=== PATIENT | female | born 1940 | race Caucasian/White ===

== ENCOUNTER 2021-01-12 17:59 | Inpatient (IN) | payer MEDICARE, OTHER ==
[~2021-01-12] VITALS: Ht 152.4 cm; Wt 45.4 kg
[2021-01-12 20:22] LABS: BASOPHILS ABSOLUTE AUTO 0.11 K/mm3 (0.00-0.23); BASOPHILS PERCENT AUTO 1 % (0-2); EOSINOPHILS ABSOLUTE AUTO 0.13 K/mm3 (0.00-0.68); EOSINOPHILS PERCENT AUTO 1 % (0-6); Hemoglobin 12.3 g/dL (11.5-16.0); IMMATURE GRAN ABSOLUTE AUTO 0.07 K/mm3 (0.00-0.10); IMMATURE GRAN PERCENT AUTO 0 % (0-1); LYMPHOCYTES ABSOLUTE AUTO 1.01 K/mm3 (0.84-5.20); LYMPHOCYTES PERCENT AUTO 5 % (21-46); MONOCYTES ABSOLUTE AUTO 1.18 K/mm3 (0.16-1.47); MONOCYTES PERCENT AUTO 6 % (4-13); Mean Corpuscular HGB 30.3 pg (26.0-34.0); Mean Corpuscular HGB Conc 33.2 g/dL (31.5-36.5); Mean Corpuscular Volume 91 fL (80-100); Mean Platelet Volume 10.8 fL (9.1-12.4); NEUTROPHILS ABSOLUTE AUTO 17.62 K/mm3 (1.96-9.15); NEUTROPHILS PERCENT AUTO 88 % (41-73); Platelet Count 331 K/mm3 (150-400); RDW Coefficient Variation 12.6 % (11.7-14.2); RDW Standard Deviation 42.1 fL (35.1-46.3); Red Blood Cell Count 4.06 M/mm3 (3.80-5.20); White Blood Cell Count 20.12 K/mm3 (4.00-11.30)
[2021-01-12 20:41] LABS: Alanine Aminotransfer (ALT/SGP 20 U/L (12-78); Albumin, Blood 3.9 g/dL (3.4-5.0); Albumin/Globulin Ratio 1.2 (0.8-1.8); Alk Phos 111 U/L (50-136); Anion Gap 5 mmol/L (6-16); Aspartate Aminotrans (AST/SGOT 27 U/L (12-37); Bilirubin, Total 0.3 mg/dL (0.1-1.0); Blood Urea Nitrogen 19 mg/dL (8-24); Bun/Creatinine Ratio 20.3 (12.0-20.0); CO2, Blood 29 mmol/L (21-32); Chloride, Blood 106 mmol/L (98-108); Creatinine, Blood 0.94 mg/dL (0.40-1.00); Globulin, Blood 3.3 g/dL (2.2-4.0); Glomerular Filtration Rate >60 (60-); Glucose, Blood 119 mg/dL (70-99); Sodium, Blood 140 mmol/L (136-145); Total Protein, Blood 7.2 g/dL (6.4-8.2); Troponin I <0.015 ng/mL (0.000-0.040)
[2021-01-12] MEDS ORDERED: Simvastatin10 MG PO (22:16)
[2021-01-12] MEDS ORDERED: AMLODIPINE BESY10 MG PO (22:16)
[2021-01-12] MEDS ORDERED: CELEXA10 MG PO (22:16)
[2021-01-12] MEDS ORDERED: STIOLTO RESPIMAT4 G1 INH (22:17)
[2021-01-12] MEDS ORDERED: ASPIR 8181 M1 PO (22:24)
[2021-01-12] MEDS ORDERED: IPRAT-ALBUT 0.5-3 ML NEB (22:24)
[2021-01-12 22:30] LABS: Source, Urine Clean Catch
[2021-01-12 22:33] LABS: Appearance, Urine Clear (Clear); Bilirubin, Urine Neg (Neg); Blood, Urine Neg (Neg); Color, Urine Yellow (P-Yellow); Glucose Qualitative, Urine Neg (Neg); Ketones, Urine 1+ (Neg); Leukocyte Esterase, Urine Neg (Neg); Nitrite, Urine Neg (Neg); Protein, Urine Neg (Neg); Specific Gravity, Urine 1.015 (1.003-1.022); Urobilinogen, Urine NORM (Normal)
[2021-01-13 00:34] LABS: Influenza A, PCR NEGATIVE (NEGATIVE); Influenza B, PCR NEGATIVE (NEGATIVE); Resp Syncytial Virus, PCR NEGATIVE (NEGATIVE); SARS-Cov-2 (COVID-19) PCR, MMC NEGATIVE (NEGATIVE)
--- NOTE | 2021-01-13 00:52 | NUR ---
PT ARRIVED AT ROOM 219 AT 2315 VIA STRETCHER. PT ADMITTED FOR R HIP FX. AOX4. VSS. MILD TACHY. REPORTS PAIN ON RIGHT LEG. CAP REFILL WNL. PEDAL PULSES ARE STRONG. PT DENIES N/T. PT C/O EXTREME PAIN WITH MOVEMENT. PT APPEARS MILD DISTRESS AFTER BED TRANSFER. SATURATING AT 80'S ON ROOM AIR. PT WAS PUT ON 2L N/C SATURATING OVER 90%. PT STS SHE IS ON RA AT BASELINE. PT DENIES CHEST PAIN, NAUSEA AND VOMITING. PT APPEARS TO HAVE PROLAPSE ON HER PRIVATE AREA DURING MY INITIAL ASSESSMENT. LUNGS SOUNDS ARE WHEEZY. COVID TEST OBTAINED, W/ NEG RESULT. NPO AT MIDNIGHT. CALL LIGHT WITHIN REACH.
--- NOTE | 2021-01-13 03:26 | NUR ---
SHIFT SUMMARY NO ACUTE CHANGES SINCE LAST ASSESSMENT, SEE EMR. PT REPORTS PAIN ON RIGHT LEG. PAIN MANAGED WITH FENTANYL 25MCG. VSS. PT ON 2L 02 N/C SATURATING 95%. PT DENIES NUMBNESS AND TINGLING SENSATION ON LOWER EXT. PT DENIES CHEST PAIN AND SOB. TELE IN PLACED. SHE IS ON SINUS RHYTHM WITH 90 HR. PT SLEEPING COMFORTABLE IN BED AT THIS TIME. CALL LIGHT WITHIN REACH. WILL PROVIDE AN UPDATE TO ONCOMING AM NURSE.
[2021-01-13 04:11] LABS: BASOPHILS ABSOLUTE AUTO 0.08 K/mm3 (0.00-0.23); BASOPHILS PERCENT AUTO 1 % (0-2); EOSINOPHILS ABSOLUTE AUTO 0.03 K/mm3 (0.00-0.68); EOSINOPHILS PERCENT AUTO 0 % (0-6); Hematocrit 35.7 % (33.0-51.0); Hemoglobin 11.2 g/dL (11.5-16.0); IMMATURE GRAN ABSOLUTE AUTO 0.05 K/mm3 (0.00-0.10); IMMATURE GRAN PERCENT AUTO 0 % (0-1); LYMPHOCYTES PERCENT AUTO 10 % (21-46); MONOCYTES ABSOLUTE AUTO 1.53 K/mm3 (0.16-1.47); MONOCYTES PERCENT AUTO 11 % (4-13); Mean Corpuscular HGB 29.6 pg (26.0-34.0); Mean Corpuscular HGB Conc 31.4 g/dL (31.5-36.5); Mean Corpuscular Volume 94 fL (80-100); Mean Platelet Volume 10.9 fL (9.1-12.4); NEUTROPHILS ABSOLUTE AUTO 11.07 K/mm3 (1.96-9.15); NEUTROPHILS PERCENT AUTO 78 % (41-73); Platelet Count 266 K/mm3 (150-400); RDW Coefficient Variation 12.6 % (11.7-14.2); RDW Standard Deviation 43.7 fL (35.1-46.3); Red Blood Cell Count 3.79 M/mm3 (3.80-5.20); White Blood Cell Count 14.16 K/mm3 (4.00-11.30)
[2021-01-13 04:27] LABS: Anion Gap 1 mmol/L (6-16); Blood Urea Nitrogen 20 mg/dL (8-24); Bun/Creatinine Ratio 24.4 (12.0-20.0); CO2, Blood 32 mmol/L (21-32); Calcium, Blood 8.7 mg/dL (8.5-10.1); Chloride, Blood 109 mmol/L (98-108); Creatinine, Blood 0.82 mg/dL (0.40-1.00); Glomerular Filtration Rate >60 (60-); Glucose, Blood 106 mg/dL (70-99); Potassium, Blood 4.3 mmol/L (3.5-5.5); Sodium, Blood 142 mmol/L (136-145)
--- NOTE | 2021-01-13 19:41 | NUR ---
SHIFT SUMMARY PT A&OX4, VSS, PAIN MANAGED WITH 25 MCGS FENT, KATERINA PO, CORDOVA PLACED/STAT LOCK ON, OFF FLOOR. PLAN FOR NPO MIDNIGHT, O.R. TOMORROW. DAUGHTER AT BEDSIDE. REPORT PROVIDED TO VALERIA HALE.
--- NOTE | 2021-01-14 03:30 | NUR ---
SHIFT SUMMARY: RIGHT HIP FX PATIENT IS ALERT AND ORIENTED X4 WHILE AWAKE. THOUGH HAS BEEN ASLEEP MAJORITY OF THE SHIFT BUT IS EASILY AROUSABLE. VS ARE WNL AND IS ON 2 LITERS NC. PAIN IS CONTROLLED WITH FENTANYL, TORADOL, OR TYLENOL. SHE REPOSITIONS HERSELF IN BED WHEN BECOMING UNCOMFORTABLE. CORDOVA IS PATENT AND HAS URINE DRAINING INTO CORDOVA BAG BY GRAVITY. SHE WAS TOLERATING PO INTAKE. THOUGH HAS BEEN NPO SINCE MIDNIGHT. CALL LIGHT WITHIN REACH. THE PLAN IS TO HAVE SURGERY LATER TODAY. SHE DENIES NAUSEA AND VOMITING AT THIS TIME.
[2021-01-14 05:10] LABS: BASOPHILS ABSOLUTE AUTO 0.01 K/mm3 (0.00-0.23); BASOPHILS PERCENT AUTO 0 % (0-2); EOSINOPHILS PERCENT AUTO 0 % (0-6); Hematocrit 37.1 % (33.0-51.0); Hemoglobin 11.8 g/dL (11.5-16.0); IMMATURE GRAN ABSOLUTE AUTO 0.05 K/mm3 (0.00-0.10); IMMATURE GRAN PERCENT AUTO 1 % (0-1); LYMPHOCYTES PERCENT AUTO 10 % (21-46); MONOCYTES ABSOLUTE AUTO 0.17 K/mm3 (0.16-1.47); MONOCYTES PERCENT AUTO 2 % (4-13); Mean Corpuscular HGB 29.5 pg (26.0-34.0); Mean Corpuscular HGB Conc 31.8 g/dL (31.5-36.5); Mean Corpuscular Volume 93 fL (80-100); Mean Platelet Volume 11.2 fL (9.1-12.4); NEUTROPHILS ABSOLUTE AUTO 8.66 K/mm3 (1.96-9.15); NEUTROPHILS PERCENT AUTO 88 % (41-73); Platelet Count 267 K/mm3 (150-400); RDW Coefficient Variation 12.4 % (11.7-14.2); RDW Standard Deviation 42.7 fL (35.1-46.3); White Blood Cell Count 9.89 K/mm3 (4.00-11.30)
[2021-01-14 05:33] LABS: Albumin, Blood 3.4 g/dL (3.4-5.0); Anion Gap 4 mmol/L (6-16); Blood Urea Nitrogen 20 mg/dL (8-24); Bun/Creatinine Ratio 34.4 (12.0-20.0); CO2, Blood 30 mmol/L (21-32); Calcium, Blood 9.1 mg/dL (8.5-10.1); Chloride, Blood 105 mmol/L (98-108); Creatinine, Blood 0.58 mg/dL (0.40-1.00); Glomerular Filtration Rate >60 (60-); Glucose, Blood 112 mg/dL (70-99); Phosphorus, Blood 3.3 mg/dL (2.5-4.9); Potassium, Blood 4.4 mmol/L (3.5-5.5); Sodium, Blood 139 mmol/L (136-145)
--- NOTE | 2021-01-14 14:01 | NUR ---
Advance Directive(AD) Education/Spiritual Care visit conducted. Upon receiving an admit referral for AD education, I visit patient. She tells me that she doesn't really need to discuss it but she would like the booklet to go over it herself. I leave an AD booklet for her to read through. Patient also tells me about her love for Adam and that if he wants her around then she will get through all the medical stuff but if it is her time to go then she is at peace. She tells me about her spiritual journey and how much her taisha means to her. I normalize patient's experience and provide pastoral international student counselor and prayer. Patient responds well and shows signs of being encouraged in her taisha. She voices appreciation for the visit. I will continue to remain available to patient and family.
--- NOTE | 2021-01-14 15:51 | NUR ---
PT ARRIVED TO THE UNIT AT 1520 FROM PACU. PT ALERT BUT MILDLY CONFUSED. PT DENIES PAIN. SHE HAD SPINAL ANESTHESIA. PT HAS DECREASED SENSATION TO HER BLE R/T SPINAL ANESTHESIA. SHE IS ABLE TO MOVE HER FEET. PT HAS INCREASED RR AND EFFORT, RT CONTACTED AND BREATHING TREATMENT REQUESTED. WILL CONTINUE TO MONITOR.
--- NOTE | 2021-01-14 18:04 | NUR ---
SHIFT SUMMARY PT IS POD#0 FROM R HIP REPAIR WITH DR. RAMSEY. PAIN HAS BEEN MINIMAL POST-OP SINCE PT HAD SPINAL ANESTHESIA. PT'S SENSATION IS IMPROVING TO BLE. PT STILL HAS INCREASED RR AND EFFORT, PT IS GETTING STEROIDS AND NEB TREATMENTS. PT'S O2 SATURATION HAS BEEN STABLE ON 2-3L O2 VIA NC. WILL CONTINUE TO MONITOR UNTIL REPORT TO NOC RN.
--- NOTE | 2021-01-15 02:54 | NUR ---
SHIFT SUMMARY: POD 1 RIGHT HIP REPAIR PATIENT IS ALERT AND ORIENTED X3-4 WHILE AWAKE. SHE CAN BECOME CONFUSED AT TIMES BUT IS EASILY REORIENTED. PATIENT HAS HAD TACHYCARDIA ACCORDING TO GROUNDSKEEPER SUPERVISOR BUT OTHERWISE HAS HAD WNL VITALS. PAIN IS MANAGED WITH NORCO PO. SHE DENIES NUMBNESS AND TINGLING IN ALL EXTREMITIES. AQUACEL ON RIGHT HIP IS C/D/I. PATIENT HAS A CORDOVA THAT IS DRAINING BY GRAVITY WITH NO KINKS IN TUBING. SHE IS CURRENTLY LAYING IN BED RESTING WITH TV ON. CALL LIGHT WITHIN REACH. SHE IS TOE TOUCH WEIGHT BEARING ON HER RIGHT LEG. THE PLAN IS TO CONTINUE WORKING WITH PT/OT TODAY.
[2021-01-15 04:33] LABS: BASOPHILS ABSOLUTE AUTO 0.01 K/mm3 (0.00-0.23); BASOPHILS PERCENT AUTO 0 % (0-2); EOSINOPHILS PERCENT AUTO 0 % (0-6); Hematocrit 28.2 % (33.0-51.0); Hemoglobin 9.1 g/dL (11.5-16.0); IMMATURE GRAN ABSOLUTE AUTO 0.11 K/mm3 (0.00-0.10); IMMATURE GRAN PERCENT AUTO 1 % (0-1); LYMPHOCYTES ABSOLUTE AUTO 0.47 K/mm3 (0.84-5.20); LYMPHOCYTES PERCENT AUTO 3 % (21-46); MONOCYTES ABSOLUTE AUTO 1.19 K/mm3 (0.16-1.47); MONOCYTES PERCENT AUTO 7 % (4-13); Mean Corpuscular HGB Conc 32.3 g/dL (31.5-36.5); Mean Corpuscular Volume 93 fL (80-100); Mean Platelet Volume 10.8 fL (9.1-12.4); NEUTROPHILS ABSOLUTE AUTO 15.78 K/mm3 (1.96-9.15); NEUTROPHILS PERCENT AUTO 90 % (41-73); Platelet Count 244 K/mm3 (150-400); Red Blood Cell Count 3.03 M/mm3 (3.80-5.20); White Blood Cell Count 17.56 K/mm3 (4.00-11.30)
[2021-01-15 05:03] LABS: Albumin, Blood 2.9 g/dL (3.4-5.0); Anion Gap 6 mmol/L (6-16); Blood Urea Nitrogen 24 mg/dL (8-24); CO2, Blood 28 mmol/L (21-32); Calcium, Blood 8.6 mg/dL (8.5-10.1); Chloride, Blood 105 mmol/L (98-108); Creatinine, Blood 0.57 mg/dL (0.40-1.00); Glomerular Filtration Rate >60 (60-); Glucose, Blood 155 mg/dL (70-99); Magnesium, Blood 2.2 mg/dL (1.6-2.4); Phosphorus, Blood 2.4 mg/dL (2.5-4.9); Potassium, Blood 4.1 mmol/L (3.5-5.5); Sodium, Blood 139 mmol/L (136-145)
--- NOTE | 2021-01-15 15:18 | NUR ---
IV INFILTRATION 18G IV REMOVED FROM LAC. IV WAS FLUSHED WITH AM AND AT 1250 WHEN SOLUMEDROL WAS GIVEN, IT WAS WNL AT THOSE TIMES. IV INFILTRATED AND WAS NOTICED WHEN IV WAS SALINE LOCKED. PT DENIED PAIN AT IV SITE.
--- NOTE | 2021-01-15 16:15 | NUR ---
SHIFT SUMMARY PT IS POD#1 FROM R HIP REPAIR WITH DR. RAMSEY. PAIN HAS BEEN MANAGED WITH NORCO AND TYLENOL. PT WAS HAVING VISUAL HALLUCINATIONS THIS MORNING, NORCO HAS BEEN DC'D. PT IS A 2 PERSON ASSIST TO STAND AND PIVOT TRANSFER. PT IS TOLERATING SMALL AMOUNTS OF PO. PT REMAINS ON 2-3L O2 AND HAS BEEN GETTING ALBUTEROL NEBULIZERS TO HELP WITH SHORTNESS OF BREATH. VSS. WILL MONITOR UNTIL REPORT TO PHILL HALE.
[2021-01-16 05:08] LABS: BASOPHILS ABSOLUTE AUTO 0.01 K/mm3 (0.00-0.23); BASOPHILS PERCENT AUTO 0 % (0-2); EOSINOPHILS PERCENT AUTO 0 % (0-6); Hematocrit 28.5 % (33.0-51.0); Hemoglobin 9.2 g/dL (11.5-16.0); IMMATURE GRAN ABSOLUTE AUTO 0.14 K/mm3 (0.00-0.10); IMMATURE GRAN PERCENT AUTO 1 % (0-1); LYMPHOCYTES ABSOLUTE AUTO 0.47 K/mm3 (0.84-5.20); LYMPHOCYTES PERCENT AUTO 3 % (21-46); MONOCYTES ABSOLUTE AUTO 0.81 K/mm3 (0.16-1.47); MONOCYTES PERCENT AUTO 5 % (4-13); Mean Corpuscular HGB 30.1 pg (26.0-34.0); Mean Corpuscular HGB Conc 32.3 g/dL (31.5-36.5); Mean Corpuscular Volume 93 fL (80-100); Mean Platelet Volume 11.1 fL (9.1-12.4); NEUTROPHILS ABSOLUTE AUTO 15.36 K/mm3 (1.96-9.15); NEUTROPHILS PERCENT AUTO 92 % (41-73); Platelet Count 247 K/mm3 (150-400); RDW Coefficient Variation 13.1 % (11.7-14.2); RDW Standard Deviation 44.9 fL (35.1-46.3); Red Blood Cell Count 3.06 M/mm3 (3.80-5.20); White Blood Cell Count 16.79 K/mm3 (4.00-11.30)
[2021-01-16 05:39] LABS: Albumin, Blood 2.9 g/dL (3.4-5.0); Anion Gap 4 mmol/L (6-16); Blood Urea Nitrogen 16 mg/dL (8-24); Bun/Creatinine Ratio 32.7 (12.0-20.0); CO2, Blood 31 mmol/L (21-32); Calcium, Blood 8.7 mg/dL (8.5-10.1); Chloride, Blood 106 mmol/L (98-108); Creatinine, Blood 0.49 mg/dL (0.40-1.00); Glomerular Filtration Rate >60 (60-); Glucose, Blood 122 mg/dL (70-99); Magnesium, Blood 2.3 mg/dL (1.6-2.4); Potassium, Blood 3.6 mmol/L (3.5-5.5); Sodium, Blood 141 mmol/L (136-145)
--- NOTE | 2021-01-16 05:41 | NUR ---
SHIFT ASSESSMENT LYING IN HIGH FOWLERS WITH EYES CLOSED. HAS RESTED WELL THIS SHIFT. GOOD OUTPUT NOTED IN CORDOVA THAT WAS D/C'D THIS MORNING WITH TIP INTACT. AAO X4, SOLANO, FAC, HAS BEEN COOPERATIVE AND PLEASANT WITH CARE AND INTERMITTENT CONFUSION NOTED. EASILY REORIENTABLE. NO SIGNIFICANT CHANGES NOTED. SL PIV IS PATENT. SCD'S, SALVADOR, AND AQUACELL IN PLACE. DENIES PAIN, DISCOMFORT, OR FURTHER NEEDS AT THIS TIME. SAFETY MEASURES IN PLACE. WILL CONTINUE TO MONITOR AND GIVE HAND OFF TO ONCOMING SHIFT USING SBAR.
--- NOTE | 2021-01-16 07:05 | NUR ---
RECVD REPORT FORM PREVIOUS SHIFT RN JILLIAN, PT SLEEPING IN ROOM, BED IN LOWEST POSITION, BED RAILS UP X 2, CALL LIGHT WITHIN REACH
--- NOTE | 2021-01-16 10:18 | NUR ---
0715- dr maurer roundzay on pt 1000- physical therapy in with pt
--- NOTE | 2021-01-16 11:30 | NUR ---
1100-collected/sent covid-19 test for SNF transfer today 1115-OT working with patient
--- NOTE | 2021-01-16 11:31 | NUR ---
family member visiting patient
[2021-01-16 12:02] LABS: Influenza A, PCR NEGATIVE (NEGATIVE); Influenza B, PCR NEGATIVE (NEGATIVE); Resp Syncytial Virus, PCR NEGATIVE (NEGATIVE); SARS-Cov-2 (COVID-19) PCR, MMC NEGATIVE (NEGATIVE)
--- NOTE | 2021-01-16 14:41 | NUR ---
peripheral iv removed wnl, pt's sister to take pt's extra belongings home; called report to [facility] nursing staff.
== END 2021-01-16 15:19 | DRG 480 ==
LOC: ER 17:59 → SURS 23:10
PROVIDERS: Family Medicine; Orthopaedic Surgery; Physician Assistant; ADMIT Family Medicine
PROC: 0QS634Z Reposition Right Upper Femur with Internal Fixation Device, Percutaneous Approach (ICD-10-PCS; principal; 2021-01-14 07:30)
DX: S72.141A Displaced intertrochanteric fracture of right femur, initial encounter for closed fracture (principal); J96.21 Acute and chronic respiratory failure with hypoxia; E44.0 Moderate protein-calorie malnutrition; Z68.1 Body mass index [BMI] 19.9 or less, adult; J44.1 Chronic obstructive pulmonary disease with (acute) exacerbation; Z20.822 Contact with and (suspected) exposure to COVID-19; F32.9 Major depressive disorder, single episode, unspecified; I10 Essential (primary) hypertension; E78.5 Hyperlipidemia, unspecified; Z87.891 Personal history of nicotine dependence; Z79.82 Long term (current) use of aspirin
CPT/HCPCS: 0241U; 36415; 71045; 72170; 73552; 73562-RT; 80048; 80053; 80069; 81003; 83605; 83735; 84145; 84484; 85025; 93005; 93010; 94640; 94760; 94762; 96361; 96374; 96375; 97110; 97162; 97166; 97530; 97535; 99285-25; A9270; C1713; C1769; J0456; J0690; J1650; J1885; J2370; J2405; J2704; J2930; J3010; J7030; J7050; J7060; J7120

== ENCOUNTER 2023-05-15 15:34 | Emergency (ER) | payer MEDICARE, OTHER ==
[~2023-05-15] VITALS: Ht 157.5 cm; Wt 49.0 kg
[~2023-05-15 15:34] MED LIST: AMLODIPINE BESY10 MG PO; ASPIR 8181 M1 PO; CELEXA10 MG PO; IPRAT-ALBUT 0.5-3 ML NEB; STIOLTO RESPIMAT4 G1 INH; Simvastatin10 MG PO
[2023-05-15 16:11] LABS: BASOPHILS ABSOLUTE AUTO 0.07 K/mm3 (0.00-0.23); BASOPHILS PERCENT AUTO 1 % (0-2); EOSINOPHILS PERCENT AUTO 5 % (0-6); Hemoglobin 10.8 g/dL (11.5-16.0); IMMATURE GRAN ABSOLUTE AUTO 0.02 K/mm3 (0.00-0.10); IMMATURE GRAN PERCENT AUTO 0 % (0-1); LYMPHOCYTES PERCENT AUTO 22 % (21-46); MONOCYTES ABSOLUTE AUTO 1.07 K/mm3 (0.16-1.47); MONOCYTES PERCENT AUTO 14 % (4-13); Mean Corpuscular HGB 30.2 pg (26.0-34.0); Mean Corpuscular HGB Conc 32.7 g/dL (31.5-36.5); Mean Corpuscular Volume 92 fL (80-100); Mean Platelet Volume 10.4 fL (9.1-12.4); NEUTROPHILS ABSOLUTE AUTO 4.34 K/mm3 (1.96-9.15); NEUTROPHILS PERCENT AUTO 57 % (41-73); Platelet Count 298 K/mm3 (150-400); RDW Standard Deviation 43.9 fL (35.1-46.3); Red Blood Cell Count 3.58 M/mm3 (3.80-5.20)
[2023-05-15 16:38] LABS: Albumin, Blood 3.7 g/dL (3.4-5.0); Albumin/Globulin Ratio 1.2 (0.8-1.8); Bilirubin, Total 0.3 mg/dL (0.1-1.0); Bun/Creatinine Ratio 23.8 (12.0-20.0); Calcium, Blood 9.1 mg/dL (8.5-10.1); Creatinine, Blood 0.8 mg/dL (0.40-1.00); Potassium, Blood 4.4 mmol/L (3.5-5.5); Total Protein, Blood 6.7 g/dL (6.4-8.2)
[2023-05-15 18:30] VITALS: BP 160/85
== END 2023-05-15 19:11 | disposition home or self-care (01) ==
LOC: ER 15:34
PROVIDERS: Emergency Medicine
DX: R07.9 Chest pain, unspecified (principal); I10 Essential (primary) hypertension; J44.9 Chronic obstructive pulmonary disease, unspecified; Z79.82 Long term (current) use of aspirin; Z79.51 Long term (current) use of inhaled steroids; Z79.899 Other long term (current) drug therapy; Z87.891 Personal history of nicotine dependence
CPT/HCPCS: 71045; 80053; 84484; 85025; 93005; 93010; 99285-25

== ENCOUNTER 2023-06-01 16:13 | Emergency (ER) | payer MEDICARE, OTHER ==
[~2023-06-01] VITALS: Ht 152.4 cm; Wt 29.5 kg
[2023-06-01 18:15] LABS: Base Excess Venous 8.6 mmol/L; Bicarbonate Venous 31.3 mmol/L (24.0-30.0); PCO2 Venous 48.1 mmHg (38-42); pH Blood Venous 7.44 (7.34-7.37)
[2023-06-01 18:30] LABS: BASOPHILS ABSOLUTE AUTO 0.07 K/mm3 (0.00-0.23); BASOPHILS PERCENT AUTO 1 % (0-2); EOSINOPHILS ABSOLUTE AUTO 0.15 K/mm3 (0.00-0.68); EOSINOPHILS PERCENT AUTO 2 % (0-6); Hematocrit 32.9 % (33.0-51.0); Hemoglobin 10.7 g/dL (11.5-16.0); IMMATURE GRAN ABSOLUTE AUTO 0.01 K/mm3 (0.00-0.10); IMMATURE GRAN PERCENT AUTO 0 % (0-1); LYMPHOCYTES ABSOLUTE AUTO 1.07 K/mm3 (0.84-5.20); LYMPHOCYTES PERCENT AUTO 16 % (21-46); MONOCYTES PERCENT AUTO 16 % (4-13); Mean Corpuscular HGB 29.6 pg (26.0-34.0); Mean Corpuscular HGB Conc 32.5 g/dL (31.5-36.5); Mean Corpuscular Volume 91 fL (80-100); Mean Platelet Volume 10.7 fL (9.1-12.4); NEUTROPHILS ABSOLUTE AUTO 4.36 K/mm3 (1.96-9.15); NEUTROPHILS PERCENT AUTO 65 % (41-73); Platelet Count 274 K/mm3 (150-400); RDW Coefficient Variation 12.9 % (11.7-14.2); RDW Standard Deviation 43.2 fL (35.1-46.3); Red Blood Cell Count 3.61 M/mm3 (3.80-5.20); White Blood Cell Count 6.76 K/mm3 (4.00-11.30)
[2023-06-01 18:47] LABS: Albumin, Blood 3.5 g/dL (3.4-5.0); Albumin/Globulin Ratio 1.1 (0.8-1.8); Bilirubin, Total 0.4 mg/dL (0.1-1.0); Bun/Creatinine Ratio 45.7 (12.0-20.0); Creatinine, Blood 0.64 mg/dL (0.40-1.00); Globulin, Blood 3.3 g/dL (2.2-4.0); Total Protein, Blood 6.8 g/dL (6.4-8.2)
[2023-06-01 19:13] LABS: Influenza A, PCR NEGATIVE (NEGATIVE); Influenza B, PCR NEGATIVE (NEGATIVE); Resp Syncytial Virus, PCR NEGATIVE (NEGATIVE); SARS-Cov-2 (COVID-19) PCR, MMC NEGATIVE (NEGATIVE)
[2023-06-01] MEDS ORDERED: Prinivil10 MG PO (20:43)
[2023-06-02 09:45] VITALS: BP 167/72
== END 2023-06-02 09:52 | disposition home or self-care (01) ==
LOC: ER 16:13
PROVIDERS: Emergency Medicine
DX: R41.0 Disorientation, unspecified (principal); F03.90 Unspecified dementia, unspecified severity, without behavioral disturbance, psychotic disturbance, mood disturbance, and anxiety; J44.9 Chronic obstructive pulmonary disease, unspecified; I10 Essential (primary) hypertension; Z79.899 Other long term (current) drug therapy; Z79.82 Long term (current) use of aspirin; Z87.891 Personal history of nicotine dependence; Z20.822 Contact with and (suspected) exposure to COVID-19
CPT/HCPCS: 0241U; 71045; 80053; 82803; 83880; 84484; 85025; 93005; 93010

== ENCOUNTER 2023-07-21 09:54 | Observation (INO) | payer MEDICARE, OTHER ==
[~2023-07-21] VITALS: Ht 149.9 cm; Wt 33.1 kg
[2023-07-21] VITALS (22 sets, daily range): BP systolic 104–138; BP diastolic 44–93
[~2023-07-21 09:54] MED LIST changes: +Prinivil10 MG PO
[2023-07-21 10:16] LABS: BASOPHILS ABSOLUTE AUTO 0.08 K/mm3 (0.00-0.23); BASOPHILS PERCENT AUTO 1 % (0-2); EOSINOPHILS ABSOLUTE AUTO 0.02 K/mm3 (0.00-0.68); EOSINOPHILS PERCENT AUTO 0 % (0-6); Hematocrit 24.5 % (33.0-51.0); IMMATURE GRAN ABSOLUTE AUTO 0.05 K/mm3 (0.00-0.10); IMMATURE GRAN PERCENT AUTO 1 % (0-1); LYMPHOCYTES ABSOLUTE AUTO 0.73 K/mm3 (0.84-5.20); LYMPHOCYTES PERCENT AUTO 8 % (21-46); MONOCYTES ABSOLUTE AUTO 0.52 K/mm3 (0.16-1.47); MONOCYTES PERCENT AUTO 5 % (4-13); Mean Corpuscular HGB 30.2 pg (26.0-34.0); Mean Corpuscular HGB Conc 32.7 g/dL (31.5-36.5); Mean Corpuscular Volume 93 fL (80-100); Mean Platelet Volume 10.6 fL (9.1-12.4); NEUTROPHILS ABSOLUTE AUTO 8.22 K/mm3 (1.96-9.15); NEUTROPHILS PERCENT AUTO 86 % (41-73); Platelet Count 325 K/mm3 (150-400); RDW Coefficient Variation 12.4 % (11.7-14.2); RDW Standard Deviation 41.5 fL (35.1-46.3); Red Blood Cell Count 2.65 M/mm3 (3.80-5.20); White Blood Cell Count 9.62 K/mm3 (4.00-11.30)
[2023-07-21] MEDS ORDERED: ESCI20 PO (10:32)
[2023-07-21 10:37] LABS: Albumin, Blood 3.1 g/dL (3.4-5.0); Albumin/Globulin Ratio 1.1 (0.8-1.8); Bilirubin, Total 0.4 mg/dL (0.1-1.0); Bun/Creatinine Ratio 68.3 (12.0-20.0); Calcium, Blood 8.3 mg/dL (8.5-10.1); Creatinine, Blood 0.85 mg/dL (0.40-1.00); Globulin, Blood 2.9 g/dL (2.2-4.0); Potassium, Blood 4.8 mmol/L (3.5-5.5)
[2023-07-21] MEDS ORDERED: Acetaminophen325 M1 PO (10:38)
[2023-07-21 11:11] LABS: International Normalized Ratio 1.01; Prothrombin Time Results 10.6 Sec (9.7-11.5)
--- NOTE | 2023-07-21 14:00 | NUR ---
ICU ADMISSION: REPORT RECEIVED FROM BREANN Miner RN IN ED. PT ARRIVED TO ICU-11 AT APPROX 1355. AT THAT TIME, THE PT IS CONVERSING W/ STAFF & APPEARS TO BE ORIENTED. DURING FURTHER CONVERSATION, THE PT BEGINS TO ASK REPETETIVE QUESTIONS & APPEARS CONFUSED. SHE IS ORIENTED TO HERSELF, FOLLOWING DIRECTIONS & FAMILY. SHE IS CONFUSED TO PLACE, DATE & CIRCUMSTANCES PRECEEDING ADMISSION. THIS RN HAS CONTACTED THE PT's DAUGHTER, YAW, W/ QUESTIONS REGARDING THE PT's BASELINE MENTATION & LIVING SITUATION. SHE STS THAT THE PT's MENTATION & ORIENTATION HAS STEADILY BEEN DECLINING & THAT A CT OF HER HEAD WAS COMPLETED LAST THURSDAY TO DIAGNOSE DEMENTIA, THEY ARE STILL WAITING ON RESULTS. THE PT CURRENTLY LIVES IN A [place]UP[place] ALONE & HER DAUGHTER REPORTS THAT SHE HAS NOT BEEN TAKING GOOD CARE OF HERSELF ON A REGULAR BASIS & OFTEN FORGETTING TO EAT. SHE WILL BRING A HOME MEDICATION LIST WHEN SHE VISITS THIS EVENING. LS W/ FINE CRACKLES & INSPIRATORY WHEEZING, PT ON 2L NC WHICH IS HOME DOSE, O2 SATS > 90% ON AVG. MONITOR SHOWS ST W/ HR 100s, BP STABLE. PT DENIES CURRENT NAUSEA OR GI COMPLAINTS, COFFEE GROUNDS EMESIS REPORTED IN ED. INCONTINENT OF URINE W/ ATTENDS IN PLACE. SKIN OVERALL FRAGILE, PALE & COOL TO TOUCH. NO SIGNS OF SKIN BREAKDOWN NOTED, SCATTERED BRUISING T/O EXTREMITIES. WILL CONTINUE TO MONITOR & REPORT OFF TO RAOUL Bean RN TO ASSUME CARE.
--- NOTE | 2023-07-21 14:45 | NUR ---
I AGREE WITH GEOFFREY WREN ASSESSMENT AT 1400. PATIENT HAS NO COMPLAINTS AT THIS TIME. CARE CONTINUES.
[2023-07-21 15:39] LABS: Percent Saturation 46.2 % (15.0-50.0)
[2023-07-21 18:30] LABS: Hematocrit 22.8 % (33.0-51.0); Hemoglobin 7.5 g/dL (11.5-16.0)
--- NOTE | 2023-07-21 19:20 | NUR ---
SHIFT SUMMARY PATIENT REMAINED ORIENTED ONLY TO SELF, FAMILY AND FOLLOWING COMMANDS. PATIENT HAD NO COMPLAINTS OF PAIN OR DISCOMFORT THIS SHIFT. PATIENT REMAINED WEAK BUT ABLE TO ASSIST WITH ATTENDS CHANGES AND REPOSITIONING. PATIENT REMAINED SATTING 90% AND GREATER ON RA. PATIENT REMAINED SR TO ST, HR 90S TO LOW 100S. SBP 1-TEENS TO 130S. SCDS PLACED. NO COMPLAINTS OF NAUSEA THIS SHIFT. NO VOMITING. NO BM. PATIENT ON CLEAR LIQUIDS UNTIL 0700. DR. PATEL PLANS TO SCOPE TOMORROW AFTERNOON. ATTENDS IN PLACE FOR INCONTINENCE. NO CHANGES TO SKIN NOTED. PROTONIX REMAINS AT 10 MLS/ HOUR. H AND H AT 0000. DAUGHTER HERE TO SEE PATIENT AND SPEAK WITH DR. PATEL. BED LOW, CALL LIGHT IN REACH, BED ALARM ON. REPORT GIVEN TO ASSUMING OFFICE TECHNOLOGY INSTRUCTOR NURSE.
[2023-07-22] VITALS (16 sets, daily range): BP systolic 115–145; BP diastolic 52–70
[2023-07-22 00:20] LABS: Hematocrit 24.3 % (33.0-51.0); Hemoglobin 7.9 g/dL (11.5-16.0)
[2023-07-22] MEDS ORDERED: ANORO ELLIPTA1 EACH INH (02:21)
[2023-07-22] MEDS ORDERED: ATOR10 PO (02:22)
--- NOTE | 2023-07-22 06:16 | NUR ---
PATIENT AOX1. AGITATED WITH STAFFF OVERNIGHT. SR WITH STABLE BP. 2L NC (BASELINE). NO EPISODES OF NAUSEA OR VOMITING. NO BOWEL MOVEMENTS OVERNIGHT. PUREWICK IN PLACE. PROTONIX GTT INFUSING.
[2023-07-22 06:46] LABS: BASOPHILS ABSOLUTE AUTO 0.07 K/mm3 (0.00-0.23); BASOPHILS PERCENT AUTO 1 % (0-2); EOSINOPHILS ABSOLUTE AUTO 0.25 K/mm3 (0.00-0.68); EOSINOPHILS PERCENT AUTO 4 % (0-6); Hematocrit 24.2 % (33.0-51.0); Hemoglobin 7.8 g/dL (11.5-16.0); IMMATURE GRAN ABSOLUTE AUTO 0.02 K/mm3 (0.00-0.10); IMMATURE GRAN PERCENT AUTO 0 % (0-1); LYMPHOCYTES ABSOLUTE AUTO 1.34 K/mm3 (0.84-5.20); LYMPHOCYTES PERCENT AUTO 19 % (21-46); MONOCYTES ABSOLUTE AUTO 0.87 K/mm3 (0.16-1.47); MONOCYTES PERCENT AUTO 13 % (4-13); Mean Corpuscular HGB 30.6 pg (26.0-34.0); Mean Corpuscular HGB Conc 32.2 g/dL (31.5-36.5); Mean Corpuscular Volume 95 fL (80-100); NEUTROPHILS ABSOLUTE AUTO 4.42 K/mm3 (1.96-9.15); NEUTROPHILS PERCENT AUTO 63 % (41-73); Platelet Count 283 K/mm3 (150-400); RDW Coefficient Variation 12.6 % (11.7-14.2); RDW Standard Deviation 43.7 fL (35.1-46.3); Red Blood Cell Count 2.55 M/mm3 (3.80-5.20); White Blood Cell Count 6.97 K/mm3 (4.00-11.30)
[2023-07-22 07:04] LABS: Bun/Creatinine Ratio 44.9 (12.0-20.0); Calcium, Blood 8.6 mg/dL (8.5-10.1); Creatinine, Blood 0.67 mg/dL (0.40-1.00); Potassium, Blood 3.9 mmol/L (3.5-5.5)
--- NOTE | 2023-07-22 08:45 | NUR ---
INITIAL ASSESSMENT PATIENT FRAIL, CACHECTIC. PATIENT CONFUSED; ORIENTED ONLY TO SELF, FAMILY AND FOLLOWING COMMANDS. PATIENT HAS SHORT TERM MEMORY. PATIENT HAD PULLED OFF LINES AND ONE IV OUT PRIOR TO ENTERING ROOM. PATIENT WEAK BUT ABLE TO MOVE ALL EXTREMITIES AND HELP WITH TURNING AND ATTENDS CHANGE. PATIENT AFEBRILE. PATIENT HAS NO COMPLAINTS OF PAIN. PATIENT SATTING 90% AND GREATER ON 2 L NC (HOME BASELINE). LUNGS DIM THROUGHOUT. LEFT UPPER LOBE CRACKLING. PATIENT SOB WITH EXERTION. PATIENT IN SR, HR IN THE 80S. SBP IN THE 140S. SCDS IN PLACE. PATIENT DENIES NAUSEA. DATE OF LAST BM UNKNOWN. PATIENT REPORTS LACK OF APPETITE AND THAT SHE HAS NOT HAD APPETITE FOR A VERY LONG TIME. DAUGHTER REPORTED THAT PATIENT CONTINUES TO LOSE WT. ATTENDS IN PLACE FOR URINARY INCONTINENCE. SKIN PALE, DRY, FRAGILE. SCATTERED BRUISES T/O BODY. PROTONIX INFUSING AT 10 MLS/ HOUR. BED LOW, CALL LIGHT IN REACH, BED ALARM ON.
--- NOTE | 2023-07-22 12:00 | NUR ---
PATIENT AFEBRILE. PATIENT STATES SHE HAS SLIGHT HEADACHE BUT STATES IT IS MANAGEABLE WITHOUT PAIN MEDICATIONS AT THIS TIME. HR IN THE 90S. SBP IN THE 120S. PATIENT NOW NPO FOR SCOPE THIS AFTERNOON. BED LOW, CALL LIGHT IN REACH, BED ALARM ON. CARE CONTINUES.
--- NOTE | 2023-07-22 17:15 | NUR ---
PATIENT TAKEN FOR EGD PROCEDURE.
--- NOTE | 2023-07-22 17:52 | NUR ---
07/22/23 1752 Stewart Barajas History, Chart, Medications and Allergies reviewed before start of procedure. MONITOR INTACT WITH CONTINUOUS PULSE OXIMETRY, CONTINUOUS END TITAL CO2, AND INTERMITTENT BLOOD PRESSURE. 3-LEAD EKG REVIEWED WITH PHYSICIAN PRIOR TO START OF PROCEDURE. O2 VIA N/C INTACT THROUGHOUT SEDATION/PROCEDURE. Bite Block Placed.
--- NOTE | 2023-07-22 18:49 | NUR ---
SHIFT SUMMARY PATIENT REMAINED ORIENTED TO SELF, FAMILY, HOSPITAL AND FOLLOWING COMMANDS. PATIENT WEAK BUT ABLE TO HELP WITH REPOSITIONING AND ATTENDS CHANGES. PATIENT CALM, COOPERATIVE AND PLEASANT. PATIENT REMAINED AFEBRILE. PATIENT REMAINED SATTING 90% AND GREATER ON 2 L NC. PATIENT REMAINED SR TO ST, HR 80S TO LOW 100S. SBP 120S TO 130S. NO NAUSEA REPORTED FROM PATIENT THIS SHIFT. PATIENT NPO AT NOON FOR EGD THIS AFTERNOON. PATIENT NOW ON CARDIAC/ VEGETARIAN DIET (VEGETARIAN PER PATIENT REQUEST). NO BM THIS SHIFT. PATIENT STATES SHE DOES NOT HAVE MANY BMS SHE DOES NOT EAT VERY MUCH. ATTENDS IN PLACE FOR INCONTINENCE; PATIENT HAD SEVERAL VOIDS THIS SHIFT. NO CHANGES TO SKIN NOTED. PATIENT REPOSITIONED Q2H. PATIENT REFUSED BED BATH. PROTONIX DRIP DC'D AFTER EGD. FAMILY IN VISITING PATIENT AT THIS TIME. BED LOW, CALL LIGHT IN REACH, BED ALARM ON. REPORT WILL BE GIVEN TO ASSUMING STEEL POURER HELPER NURSE SHORTLY.
--- NOTE | 2023-07-22 20:15 | NUR ---
ASSESSMENT/ASSUMED CARE PT SITTING UP IN BED WATCHING TV. A&O TO SELF. STATES,"I'M IN [place] AT SOME ALF". REORIENTED TO PLACE AND TIME. PT DENIES PAIN OR DISCOMFORT AT THIS TIME. LUNGS CLEAR BUT DECREASED ON 2 LITES VIA NC. RESP EVEN AND NONLABORED. DENIES SOB OR COUGH. HEART RATE REGULAR IN THE 100'S. BP STABLE. DENIES CHEST PAIN OR PRESSURE. SKIN WARM AND DRY. PT MAEW. ASSISTED TO TURNING TO CHANGE ATTENDS. PT INCONT OF URINE WITH SMEAR OF BLACK STOOL. BED ALARM ON. IV SALINE LOCKED, SITE CLEAR.
--- NOTE | 2023-07-22 23:00 | NUR ---
PT GOT OUT OF BED WITHOUT ASSIST. BED ALRAM DID NOT GO OFF. PT HAD REMOVED O2 AND WAS SOB. BACK TO BED WITH ASSIST. BED ALARM ON. REPLACED TELE LEADS. BACK ON O2 SPO2 98%. DIVINA LEFT OPEN.
--- NOTE | 2023-07-23 02:40 | NUR ---
PT TRYING TO GET OUT OF BED WITHOUT CALLING. STATES,"I NEED TO USE THE BATHROOM". BSC BROUGHT TO PT. STANDBY ASSIST TO BSC. PT STATES,"YOU DON'T NEED TO STAY AND HELP ME, I CAN DO IT MYSELF". EXPLAINED THAT PT IS IN THE HOSPITAL AND I DON'T WANT HER TO FALL. PT SAYS."I THOUGHT I WAS AT HOME. I DIDN'T KNOW I WAS IN THE HOSPITAL". REORIENTED PT TO PLACE AND TIME. PT VOIDED AND HAD MED FORMED BROWN STOOL. ATTENDS CHANGED. BACK TO BED WITH BEDALARM ON.
[2023-07-23 03:39] LABS: BASOPHILS PERCENT AUTO 1 % (0-2); EOSINOPHILS ABSOLUTE AUTO 0.52 K/mm3 (0.00-0.68); EOSINOPHILS PERCENT AUTO 7 % (0-6); Hematocrit 22.6 % (33.0-51.0); Hemoglobin 7.4 g/dL (11.5-16.0); IMMATURE GRAN ABSOLUTE AUTO 0.03 K/mm3 (0.00-0.10); IMMATURE GRAN PERCENT AUTO 0 % (0-1); LYMPHOCYTES ABSOLUTE AUTO 1.27 K/mm3 (0.84-5.20); LYMPHOCYTES PERCENT AUTO 17 % (21-46); MONOCYTES ABSOLUTE AUTO 0.83 K/mm3 (0.16-1.47); MONOCYTES PERCENT AUTO 11 % (4-13); Mean Corpuscular HGB 30.3 pg (26.0-34.0); Mean Corpuscular HGB Conc 32.7 g/dL (31.5-36.5); Mean Corpuscular Volume 93 fL (80-100); Mean Platelet Volume 10.4 fL (9.1-12.4); NEUTROPHILS ABSOLUTE AUTO 4.95 K/mm3 (1.96-9.15); NEUTROPHILS PERCENT AUTO 64 % (41-73); Platelet Count 278 K/mm3 (150-400); RDW Coefficient Variation 12.5 % (11.7-14.2); Red Blood Cell Count 2.44 M/mm3 (3.80-5.20)
[2023-07-23 04:00] VITALS: BP 98/47
[2023-07-23 04:00] LABS: Anion Gap 3 mmol/L (6-16); Blood Urea Nitrogen 24 mg/dL (8-24); Bun/Creatinine Ratio 34.3 (12.0-20.0); CO2, Blood 31 mmol/L (21-32); Calcium, Blood 8.9 mg/dL (8.5-10.1); Chloride, Blood 105 mmol/L (98-108); Glomerular Filtration Rate 85 (60-); Glucose, Blood 90 mg/dL (70-99); Phosphorus, Blood 3.3 mg/dL (2.5-4.9); Potassium, Blood 4.3 mmol/L (3.5-5.5); Sodium, Blood 139 mmol/L (136-145)
--- NOTE | 2023-07-23 05:25 | NUR ---
SHIFT SUMMARY PT RESTING QUIELTLY AT THIS TIME. BED ALARM ON. PT HAS TRIED TO CLIMB OUT OF BED SEVERAL TIMES WITHOUT CALLING. PT STATES,"WHY ARE YOU AT MY HOME"? FREQUENTLY REORIENTED TO PLACE AND TIME. PT HAD ONE SOLID FORMED BROWN STOOL DURING THE NIGHT. UP TO BSC VOIDING CLEAR YELLOW URINE. VSS. REPORT TO ON COMING NURSE
[2023-07-23 07:33] VITALS: BP 120/51
[2023-07-23] MEDS ORDERED: OMEP20ER PO (08:58)
--- NOTE | 2023-07-23 12:03 | NUR ---
DISCHARGE PT DISCHARGED TO HOME WITH HER DAUGHTER. DAVID PROVIDED OXYGEN FOR TRANSPORT HOME. ALL BELONGINGS SENT HOME WITH PT. DISCHARGE INSTRUCTIONS REVIEWED WITH PT AND HER DAUGHTER.
== END 2023-07-23 14:23 | disposition home or self-care (01) ==
LOC: ER 09:54 → ICUE 09:55
PROVIDERS: Internal Medicine Gastroenterology; Physician Assistant; Student in an Organized Health Care Education/Training Program; ADMIT Family Medicine
DX: K22.89 Other specified disease of esophagus (principal); K44.9 Diaphragmatic hernia without obstruction or gangrene; D62 Acute posthemorrhagic anemia; I95.9 Hypotension, unspecified; I10 Essential (primary) hypertension; E43 Unspecified severe protein-calorie malnutrition; Z68.1 Body mass index [BMI] 19.9 or less, adult; E78.5 Hyperlipidemia, unspecified; J44.9 Chronic obstructive pulmonary disease, unspecified; F32.A Depression, unspecified; Z87.891 Personal history of nicotine dependence; Z79.82 Long term (current) use of aspirin; Z79.899 Other long term (current) drug therapy
CPT/HCPCS: 36415; 80048; 80053; 80069; 82607; 82728; 82746; 83540; 83550; 85014; 85018; 85025; 85610; 85730; 86850; 86900; 86901; 93005; 93010; 96365; 96375; 96376; 99285-25; A9270; C9113; G0378; J2405; J7030; J7120